=== PATIENT | male | born 1975 | race Caucasian/White ===

== ENCOUNTER → 2018-11-20 | Outpatient (CLI) | payer SELFPAY ==
[~2018-11-20] MED LIST: NO MEDICATIONS
[2018-11-20 17:37] LABS: Albumin 3.9 g/dL (3.4-5.0); BUN/Creatinine Ratio 8.7; Calcium 8.9 mg/dL (8.5-10.1); Potassium 4.1 mmol/L (3.5-5.1)
[2018-11-20 17:41] LABS: Bilirubin, Total 0.5 mg/dL (0.2-1.0); Total Protein 7.6 g/dL (6.4-8.2)
[2018-11-20 17:54] LABS: Micro Albumin 10.6 mg/L (0-30.0)
== END | disposition home or self-care (01) ==
LOC: LAB 16:14
DX: E11.9 Type 2 diabetes mellitus without complications (principal); E78.5 Hyperlipidemia, unspecified
CPT/HCPCS: 36415; 80053; 80061; 82043; 82570; 82607; 83036